=== PATIENT | male | born 1950 | race Caucasian/White ===

== ENCOUNTER 2016-06-09 17:09 | Emergency (ER) | payer MEDICARE, MEDICAID ==
[~2016-06-09] VITALS: Ht 170.2 cm; Wt 60.0 kg
[2016-06-09] MEDS ORDERED: IBUP-1547 PO (17:44)
[2016-06-09] MEDS ORDERED: CLOP75TA32 PO (17:44)
[2016-06-09] MEDS ORDERED: MORP30CA17 PO (17:44)
[2016-06-09] MEDS ORDERED: INSLAN SQ (17:44)
[2016-06-09] MEDS ORDERED: CLIN300C3 PO (17:44)
[2016-06-09] MEDS ORDERED: METO50 PO (17:44)
[2016-06-09] MEDS ORDERED: DSS100 PO (17:44)
[2016-06-09 18:41] LABS: GLUCOSE,POINT OF CARE 138 MG/DL (70-110)
[2016-06-09] MEDS ORDERED: SODIUM CHLORIDE 0.9% 1,000 ML IV ONE (18:45)
[2016-06-09] MEDS ORDERED: IOVERSOL 350 MG/ML 100 ML VIAL ONE (18:54)
[2016-06-09] MEDS ORDERED: SODIUM CHLORIDE 0.9% 100 ML ONE (18:54)
[2016-06-09 19:20] LABS: BASOPHILS % (AUTO) 0.5 % (0.0-2.0); EOSINOPHILS % (AUTO) 0.9 % (1.0-6.0); HEMATOCRIT 31.7 % (41-53); HEMOGLOBIN 10.3 g/dL (13.5-17.5); LYMPHOCYTES # (AUTO) 0.9 K/uL (1.0-4.8); MEAN CORPUSCULAR HEMOGLOBIN 26.6 pg (26.0-34.0); MEAN CORPUSCULAR HGB CONC 32.6 G/dL (31.0-37.0); MEAN CORPUSCULAR VOLUME 82 fL (80-100); MONOCYTES # (AUTO) 0.9 K/uL (0.1-1.0); NEUTROPHILS # (AUTO) 16.4 K/uL (1.8-7.7); NEUTROPHILS % (AUTO) 88.6 % (40.0-70.0); PLATELET COUNT (AUTO) 556 K/uL (150-450); RED BLOOD CELL COUNT(AUTO) 3.88 MIL/uL (4.50-5.90); RED CELL DISTRIBUTION WIDTH 14.9 % (11.5-14.5); WHITE BLOOD COUNT (AUTO) 18.5 K/uL (4.5-11.0)
[2016-06-09 19:26] LABS: ANION GAP 7 mmol/L (8-16); CALCIUM, TOTAL 11.3 mg/dL (8.8-10.5); CARBON DIOXIDE 31 mmol/L (22-29); CHLORIDE 93 mmol/L (98-107); CREATININE 1.09 mg/dL (0.60-1.30); GLOMERULAR FILTR. RATE CALC > 60 mL/min (>60); POTASSIUM 4.5 mmol/L (3.5-5.1); SODIUM SERUM 131 mmol/L (136-145); UREA NITROGEN, BLOOD 12 mg/dL (7-18)
[2016-06-09 19:32] LABS: ALANINE AMINOTRANSFERASE 12 U/L (12-78); ASPARTATE AMINOTRANSFERASE 16 U/L (15-37); BILIRUBIN,TOTAL 0.4 mg/dL (0.1-1.0); TOTAL PROTEIN, SERUM 7.4 g/dL (6.4-8.2)
[2016-06-09] MEDS ORDERED: MORPHINE SULFATE 4 MG/ML SYRINGE IVP ONE ×2 (20:30→23:45)
[2016-06-10] MEDS ORDERED: SODIUM CHLORIDE 0.9% 500 ML IV ONE (00:15)
[2016-06-10 00:36] VITALS: BP 146/70
== END 2016-06-10 01:17 | disposition home or self-care (01) ==
LOC: EMS 17:14
DX: R13.10 Dysphagia, unspecified (principal); C34.12 Malignant neoplasm of upper lobe, left bronchus or lung; E11.9 Type 2 diabetes mellitus without complications; E78.00 Pure hypercholesterolemia, unspecified; I10 Essential (primary) hypertension; Z79.4 Long term (current) use of insulin
CPT/HCPCS: 36415; 70491; 71010; 80053; 82962; 83690; 85025; 96361; 96374; 96376; 99285; J2270; J7030; J7040; J7050; Q9967